=== PATIENT | female | born 1965 | race Caucasian/White ===

== ENCOUNTER 2018-06-12 17:29 | Emergency (ER) | payer MEDICAID, OTHER ==
[~2018-06-12] VITALS: Ht 167.6 cm; Wt 102.3 kg
[~2018-06-12 17:29] MED LIST: CLON-529 PO
[2018-06-12 17:38] VITALS: BP 175/108
== END 2018-06-12 20:02 | disposition left against medical advice (07) ==
LOC: ER 17:32
DX: R56.9 Unspecified convulsions (principal); Z53.21 Procedure and treatment not carried out due to patient leaving prior to being seen by health care provider

== ENCOUNTER 2022-06-19 12:56 | Emergency (ER) | payer BC, OTHER ==
[~2022-06-19] VITALS: Ht 167.6 cm; Wt 104.5 kg
[2022-06-19 13:32] VITALS: BP 134/83
== END 2022-06-19 16:20 | disposition home or self-care (01) ==
LOC: ER 12:57
DX: M71.20 Synovial cyst of popliteal space [Baker], unspecified knee (principal); M13.88 Other specified arthritis, other site; E78.00 Pure hypercholesterolemia, unspecified; I10 Essential (primary) hypertension; J45.909 Unspecified asthma, uncomplicated; K21.9 Gastro-esophageal reflux disease without esophagitis; G89.29 Other chronic pain; M54.9 Dorsalgia, unspecified; F15.10 Other stimulant abuse, uncomplicated; Z90.49 Acquired absence of other specified parts of digestive tract; Z56.0 Unemployment, unspecified; Z88.5 Allergy status to narcotic agent; Z79.899 Other long term (current) drug therapy
CPT/HCPCS: 73564; 73565; 99284

== ENCOUNTER 2022-08-21 11:36 | Emergency (ER) | payer BC ==
[~2022-08-21] VITALS: Ht 167.6 cm; Wt 104.5 kg
[2022-08-21 12:55] VITALS: BP 145/93
[2022-08-21 13:37] LABS: BASOPHILS % (AUTO) 0.5 % (0-1); EOSINOPHILS # (AUTO) 0.3 X10'3 (0-0.9); EOSINOPHILS % (AUTO) 3.9 % (0-6); HEMATOCRIT 46.4 % (35.0-45.0); HEMOGLOBIN 15.3 g/dl (12.0-16.0); LYMPHOCYTES # (AUTO) 2.4 X10'3 (1.1-4.8); LYMPHOCYTES % (AUTO) 33.9 % (21-51); MEAN CORPUSCULAR HEMOGLOBIN 31.3 PG (27.0-31.0); MEAN CORPUSCULAR VOLUME 94.7 FL (78-98); MEAN PLATELET VOLUME 7.9 FL (7.4-10.4); MONOCYTES # (AUTO) 0.5 X10'3 (0-0.9); NEUTROPHILS # (AUTO) 3.9 X10'3 (1.8-7.7); NEUTROPHILS % (AUTO) 54.7 % (42-75); PLATELET COUNT 243 X10'3 (140-440); RED CELL DISTRIBUTION WIDTH 13.4 % (11.5-14.5); WHITE BLOOD COUNT 7.1 X10'3 (4.5-11.0)
[2022-08-21 13:43] LABS: ALANINE AMINOTRANSFERASE 19 U/L (12-78); ALBUMIN 3.3 G/DL (3.4-5.0); ALBUMIN/GLOBULIN RATIO 0.9 (1.1-1.5); ALKALINE PHOSPHATASE 80 IU/L (46-116); ANION GAP 7 (8-16); ASPARTATE AMINO TRANSFERASE 22 U/L (10-37); BILIRUBIN,TOTAL 0.2 MG/DL (0.1-1.0); BLOOD UREA NITROGEN 13 MG/DL (7-18); BUN/CREATININE RATIO 13.8 (10.0-20.0); CALCIUM 8.7 MG/DL (8.5-10.1); CHLORIDE 103 MMOL/L (99-107); CREATININE 0.94 MG/DL (0.40-0.90); GLUCOSE 119 MG/DL (70-104); SODIUM 138 MMOL/L (135-145); TOTAL CARBON DIOXIDE 27.9 MMOL/L (24-32); TOTAL PROTEIN 6.8 G/DL (6.4-8.2); eGFR 61 ML/MIN
[2022-08-21] MEDS ORDERED: METH4TAB3 PO (15:34)
[2022-08-21] MEDS ORDERED: BENZ-38 PO (15:34)
== END 2022-08-21 15:40 | disposition home or self-care (01) ==
LOC: ER 11:37
DX: R05.9 Cough, unspecified (principal); E78.00 Pure hypercholesterolemia, unspecified; I10 Essential (primary) hypertension; J45.909 Unspecified asthma, uncomplicated; K21.9 Gastro-esophageal reflux disease without esophagitis; G89.29 Other chronic pain; M54.9 Dorsalgia, unspecified; F15.10 Other stimulant abuse, uncomplicated; Z59.00 Homelessness unspecified; Z88.5 Allergy status to narcotic agent; Z79.899 Other long term (current) drug therapy
CPT/HCPCS: 36415; 71046; 80053; 83605; 83880; 85025; 87040; 99284

== ENCOUNTER 2023-08-05 17:25 | Emergency (ER) | payer BC ==
[~2023-08-05] VITALS: Ht 167.6 cm; Wt 103.0 kg
[~2023-08-05 17:25] MED LIST changes: +METH4TAB3 PO
[2023-08-05 17:29] VITALS: BP 176/110; PULSE 70; TEMP 98.5; O2SAT 97
[2023-08-05 18:15] VITALS: RESP 17
[2023-08-05] MEDS: ipratropium/albuterol 3ml nebule NEB ONE (18:56)
[2023-08-05] MEDS: predniSONE 20 mg tablet PO ONE (18:59)
[2023-08-05] MEDS ORDERED: ALBU8HFA PO (19:19)
[2023-08-05] MEDS ORDERED: AMOX-580 PO (19:19)
== END 2023-08-05 19:37 | disposition home or self-care (01) ==
LOC: ER 17:25
DX: J20.9 Acute bronchitis, unspecified (principal); E78.00 Pure hypercholesterolemia, unspecified; I10 Essential (primary) hypertension; K21.9 Gastro-esophageal reflux disease without esophagitis; J45.909 Unspecified asthma, uncomplicated; F15.90 Other stimulant use, unspecified, uncomplicated; Z88.5 Allergy status to narcotic agent; Z79.2 Long term (current) use of antibiotics; Z79.899 Other long term (current) drug therapy
CPT/HCPCS: 71045; 99283; J7512